=== PATIENT | male | born 1960 | race Hispanic/Latino ===

== ENCOUNTER 2017-09-26 12:58 | Emergency (ER) | payer MEDICARE ==
[2017-09-26] MEDS ORDERED: TETRACAINE HCL 0.5% 4 ML OPHTH SOLN ONE (13:16)
[2017-09-26] MEDS ORDERED: INSULIN NPH 100 UNIT/ML 3ML SQ ONE (16:06)
== END 2017-09-26 16:19 | disposition home or self-care (01) ==
LOC: EDH 12:58
DX: H49.02 Third [oculomotor] nerve palsy, left eye (principal); H53.8 Other visual disturbances; H51.0 Palsy (spasm) of conjugate gaze; I10 Essential (primary) hypertension; E11.9 Type 2 diabetes mellitus without complications; Z79.4 Long term (current) use of insulin; Z86.73 Personal history of transient ischemic attack (TIA), and cerebral infarction without residual deficits; Z72.0 Tobacco use
CPT/HCPCS: 70450; 70480; 82948; 96372; 99285; J1815

== ENCOUNTER → 2020-02-28 | Outpatient (CLI) | payer OTHER | END | disposition home or self-care (01) | LOC: RAH 07:33 | PROVIDERS: ATTEND Internal Medicine Cardiovascular Disease | DX: Z13.6 Encounter for screening for cardiovascular disorders (principal) | CPT/HCPCS: 75571 ==